=== PATIENT | male | born 1965 | race Two or more races ===

== ENCOUNTER → 2019-04-26 | Outpatient (CLI) | payer OTHER | END | disposition home or self-care (01) | LOC: MAMO-SONO 10:15 → SONOGRAMA 10:39 | DX: N40.1 Benign prostatic hyperplasia with lower urinary tract symptoms (principal) ==

== ENCOUNTER 2019-06-30 08:10 | Emergency (ER) | payer OTHER ==
[~2019-06-30] VITALS: Ht 188 cm; Wt 83.9 kg
[2019-06-30] MEDS ORDERED: LISINOPRIL20 MG (08:17)
== END 2019-06-30 09:47 | disposition home or self-care (01) ==
LOC: ER 08:10
DX: S92.351A Displaced fracture of fifth metatarsal bone, right foot, initial encounter for closed fracture (principal); W13.3XXA Fall through floor, initial encounter; Y93.89 Activity, other specified; Y92.018 Other place in single-family (private) house as the place of occurrence of the external cause; Y99.8 Other external cause status

== ENCOUNTER → 2019-08-28 | Emergency (ER) | payer OTHER ==
[~2019-08-28] VITALS: Ht 185.4 cm; Wt 77.1 kg
[~2019-08-28] MED LIST: CIALIS5 MG; LISINOPRIL20 MG
== END | disposition left against medical advice (07) ==
LOC: ER 21:31
DX: Z53.20 Procedure and treatment not carried out because of patient's decision for unspecified reasons (principal)